=== PATIENT | female | born 1970 | race Caucasian/White ===

== ENCOUNTER 2016-12-03 10:13 | Inpatient (IN) | payer MEDICAID ==
[~2016-12-03] VITALS: Ht 154.9 cm; Wt 80.6 kg
[~2016-12-03 10:13] MED LIST: AMLO-512 PO; AZIT250T6 PO; DSS100 PO; FERR-89 PO; FURO40 PO; GLIP5 PO; HYD25 PO; HYDR25TA PO; LOSA25TA21 PO; MECL25TA3 PO; PHOSLOC PO; SODI650T PO; ZOLP5 PO
[2016-12-03] MEDS ORDERED: AmLODIPine BESYLATE 5 MG TABLET PO ONE (10:45)
[2016-12-03] MEDS ORDERED: CloNIDine HCL 0.2 MG TABLET PO ONE (10:45)
[2016-12-03] MEDS ORDERED: HYDROmorphone 2 MG/ML SYRINGE IVP ONE ×3 (10:45→14:45)
[2016-12-03] MEDS ORDERED: ONDANSETRON HCL 4 MG/2 ML VIAL IVP ONE ×2 (10:45→13:15)
[2016-12-03] MEDS ORDERED: INSU100V3 SQ (10:46)
[2016-12-03] MEDS ORDERED: SEVEC800 PO (10:46)
[2016-12-03] MEDS ORDERED: CLON.3 PO (10:46)
[2016-12-03] MEDS ORDERED: ASPI-1093 PO (10:46)
[2016-12-03] MEDS ORDERED: PHOSLOC PO (10:46)
[2016-12-03] MEDS ORDERED: PERCT10 PO (10:46)
[2016-12-03] MEDS ORDERED: HUMLIS7525 SQ (10:46)
[2016-12-03] MEDS ORDERED: METO-325 PO (10:46)
[2016-12-03] MEDS ORDERED: INSREG SQ (10:46)
[2016-12-03 11:12] LABS: BASOPHILS % (AUTO) 0.6 % (0.0-2.0); EOSINOPHILS % (AUTO) 0.5 % (1.0-6.0); HEMATOCRIT 38.9 % (36-46); HEMOGLOBIN 12.8 g/dL (12.0-16.0); LYMPHOCYTES # (AUTO) 1.3 K/uL (1.0-4.8); LYMPHOCYTES % (AUTO) 14.1 % (22.0-44.0); MEAN CORPUSCULAR HEMOGLOBIN 29.1 pg (26.0-34.0); MEAN CORPUSCULAR HGB CONC 32.9 G/dL (31.0-37.0); MEAN CORPUSCULAR VOLUME 88 fL (80-100); MONOCYTES # (AUTO) 0.3 K/uL (0.1-1.0); MONOCYTES % (AUTO) 3.1 % (2.0-9.0); NEUTROPHILS # (AUTO) 7.4 K/uL (1.8-7.7); NEUTROPHILS % (AUTO) 81.7 % (40.0-70.0); PLATELET COUNT (AUTO) 170 K/uL (150-450); RED CELL DISTRIBUTION WIDTH 15.8 % (11.5-14.5)
[2016-12-03 11:21] LABS: CALCIUM, TOTAL 8.8 mg/dL (8.8-10.5); CREATININE 5.75 mg/dL (0.60-1.30); POTASSIUM 4.4 mmol/L (3.5-5.1)
[2016-12-03 11:25] LABS: ALBUMIN 3.8 g/dL (3.4-5.0); BILIRUBIN,TOTAL 0.4 mg/dL (0.1-1.0); TOTAL PROTEIN, SERUM 9.3 g/dL (6.4-8.2)
[2016-12-03] MEDS ORDERED: INSULIN REGULAR, HUMAN 100 UNITS/ML IVP ONE (12:15)
[2016-12-03] MEDS ORDERED: NITROGLYCERIN 2% (1 GM=INCH) PACKET TP ONE (12:30)
[2016-12-03] MEDS ORDERED: METOPROLOL TARTRATE 5 MG/5 ML VIAL IVP ONE ×2 (12:30→14:30)
[2016-12-03] MEDS ORDERED: PROMETHAZINE HCL 25 MG/ML VIAL IM ONE (14:15)
[2016-12-03] MEDS ORDERED: KETOROLAC TROMETHAMINE 30 MG/ML VIAL IVP ONE (14:45)
[2016-12-03] MEDS ORDERED: NITROPRUSSIDE SODIUM 50 MG in DEXTROSE 5%-WATER 248 ML IV PRN ×2 (14:45→16:48)
[2016-12-03] MEDS ORDERED: ACETAMINOPHEN 325 MG TABLET PO PRN ×2 (14:45→16:45)
[2016-12-03] MEDS ORDERED: ONDANSETRON HCL 4 MG/2 ML VIAL IVP PRN (14:45)
[2016-12-03] MEDS ORDERED: 0.9% SODIUM CHLORIDE 10 ML SYRINGE IVP PRN (14:45)
[2016-12-03] MEDS ORDERED: ZOLPIDEM TARTRATE 5 MG TABLET PO PRN (16:45)
[2016-12-03] MEDS ORDERED: HYDROCODONE/ACETAMINOPHEN 5-325 MG TABLET PO PRN (16:45)
[2016-12-03] MEDS ORDERED: MAGNESIUM HYDROXIDE SUSPENSION 30 ML UDCUP PO PRN (16:45)
[2016-12-03] MEDS ORDERED: BISACODYL 10 MG RECTAL RECTAL SUPPOSITORY PR PRN (16:45)
[2016-12-03] MEDS ORDERED: DEXTROSE 50%-WATER 25 GM/50 ML SYRINGE IVP PRN (17:00)
[2016-12-03 17:18] VITALS: BP 205/110
[2016-12-03] MEDS: SEVELAMER CARBONATE 800 MG POWDER PACKET PO SCH (17:37)
[2016-12-03] MEDS: GlipiZIDE 5 MG TABLET PO SCH (17:37)
[2016-12-03] MEDS: LABETALOL HCL 200 MG in DEXTROSE 5%-WATER 160 ML IV PRN ×2 (17:37→21:48)
[2016-12-03] MEDS: CloNIDine HCL 0.1 MG TABLET PO SCH (17:57)
[2016-12-03] MEDS: INSULIN ASPART 100 UNITS/ML SQ PRN ×2 (17:58→21:51)
[2016-12-03] MEDS ORDERED: HydrALAZINE HCL 20 MG/ML VIAL IVP PRN (19:00)
[2016-12-03] MEDS ORDERED: PNEUMOCOCCAL VACCINE POLYVALENT 0.5 ML VIAL [PPSV23] IM ONE (19:15)
[2016-12-03 20:00] VITALS: BP 135/76
[2016-12-03] MEDS ORDERED: SODIUM BICARBONATE 650 MG TABLET PO SCH (21:00)
[2016-12-03] MEDS: ISOSORB DINIT/HYDRALAZINE HCL 20-37.5 MG TABLET PO SCH (21:47)
[2016-12-03] MEDS: DOCUSATE SODIUM 100 MG CAPSULE PO SCH (21:47)
[2016-12-04] VITALS (9 sets, daily range): BP systolic 134–172; BP diastolic 60–92
[2016-12-04] MEDS: CloNIDine HCL 0.1 MG TABLET PO SCH ×3 (00:27→16:29)
[2016-12-04] MEDS: HEPARIN SODIUM,PORCINE 5,000 UNITS/ML VIAL SQ SCH ×3 (00:27→16:29)
[2016-12-04] MEDS: INSULIN ASPART 100 UNITS/ML SQ PRN ×3 (00:28→16:31)
[2016-12-04] MEDS: LABETALOL HCL 200 MG in DEXTROSE 5%-WATER 160 ML IV PRN ×2 (00:39→05:06)
[2016-12-04] MEDS: ONDANSETRON HCL 4 MG/2 ML VIAL IVP PRN (00:40)
[2016-12-04 05:16] LABS: BASOPHILS # (AUTO) 0.04 K/uL (0.00-0.20); BASOPHILS % (AUTO) 0.5 % (0.0-2.0); EOSINOPHILS # (AUTO) 0.06 K/uL (0.00-0.70); EOSINOPHILS % (AUTO) 0.78 % (1.0-6.0); HEMATOCRIT 33.6 % (36-46); HEMOGLOBIN 11.2 g/dL (12.0-16.0); LYMPHOCYTES # (AUTO) 2.2 K/uL (1.0-4.8); LYMPHOCYTES % (AUTO) 28.7 % (22.0-44.0); MEAN CORPUSCULAR HEMOGLOBIN 29.7 pg (26.0-34.0); MEAN CORPUSCULAR HGB CONC 33.3 G/dL (31.0-37.0); MEAN CORPUSCULAR VOLUME 89 fL (80-100); MONOCYTES # (AUTO) 0.7 K/uL (0.1-1.0); MONOCYTES % (AUTO) 8.4 % (2.0-9.0); NEUTROPHILS # (AUTO) 4.8 K/uL (1.8-7.7); NEUTROPHILS % (AUTO) 61.6 % (40.0-70.0); PLATELET COUNT (AUTO) 150 K/uL (150-450); RED BLOOD CELL COUNT(AUTO) 3.77 MIL/uL (4.00-5.20); RED CELL DISTRIBUTION WIDTH 16.2 % (11.5-14.5); WHITE BLOOD COUNT (AUTO) 7.8 K/uL (4.5-11.0)
[2016-12-04 05:33] LABS: CREATININE 7.53 mg/dL (0.60-1.30); MAGNESIUM 2.2 mg/dL (1.80-2.40)
[2016-12-04] MEDS: MORPHINE SULFATE 2 MG/ML SYRINGE IVP PRN ×2 (06:22→22:48)
[2016-12-04] MEDS: GlipiZIDE 5 MG TABLET PO SCH ×2 (06:35→16:29)
[2016-12-04] MEDS: INSULIN LISPRO PROTAM-LISPRO HUM 75/25 UNITS/ML SQ SCH (08:00)
[2016-12-04 08:07] LABS: GLUCOSE,POINT OF CARE 172 MG/DL (70-110)
[2016-12-04 08:07] LABS: GLUCOSE,POINT OF CARE 228 MG/DL (70-110)
[2016-12-04 08:07] LABS: GLUCOSE COMMENT 1 Received Meds; GLUCOSE,POINT OF CARE 325 MG/DL (70-110)
[2016-12-04 08:11] LABS: GLUCOSE,POINT OF CARE 120 MG/DL (70-110)
[2016-12-04] MEDS ORDERED: LOSARTAN POTASSIUM 25 MG TABLET PO SCH (09:00)
[2016-12-04] MEDS: ISOSORB DINIT/HYDRALAZINE HCL 20-37.5 MG TABLET PO SCH (09:15)
[2016-12-04] MEDS: SEVELAMER CARBONATE 800 MG POWDER PACKET PO SCH ×3 (09:15→16:28)
[2016-12-04] MEDS: DOCUSATE SODIUM 100 MG CAPSULE PO SCH ×2 (09:15→22:48)
[2016-12-04] MEDS: PANTOPRAZOLE SODIUM 40 MG DR TABLET PO SCH (09:16)
[2016-12-04] MEDS: METOPROLOL SUCCINATE 50 MG ER TABLET PO SCH (09:16)
[2016-12-04] MEDS: AmLODIPine BESYLATE 10 MG TABLET PO SCH (09:16)
[2016-12-04] MEDS: VITAMIN B COMP/VIT C/FOLIC ACID CAPSULE PO SCH (17:15)
[2016-12-04 20:33] LABS: GLUCOSE COMMENT 1 Received Meds; GLUCOSE,POINT OF CARE 234 MG/DL (70-110)
[2016-12-05 00:01] VITALS: BP 159/70
[2016-12-05] MEDS: ISOSORB DINIT/HYDRALAZINE HCL 20-37.5 MG TABLET PO SCH ×3 (00:27→23:18)
[2016-12-05] MEDS: CloNIDine HCL 0.1 MG TABLET PO SCH ×4 (00:27→23:41)
[2016-12-05] MEDS: HEPARIN SODIUM,PORCINE 5,000 UNITS/ML VIAL SQ SCH ×4 (00:28→23:37)
[2016-12-05] MEDS: INSULIN ASPART 100 UNITS/ML SQ PRN ×4 (00:40→23:37)
[2016-12-05] MEDS: MORPHINE SULFATE 2 MG/ML SYRINGE IVP PRN ×2 (02:59→23:40)
[2016-12-05 03:26] LABS: GLUCOSE COMMENT 1 Received Meds; GLUCOSE,POINT OF CARE 270 MG/DL (70-110)
[2016-12-05 04:26] VITALS: BP 159/78
[2016-12-05] MEDS: GlipiZIDE 5 MG TABLET PO SCH ×2 (05:57→18:02)
[2016-12-05 06:37] LABS: GLUCOSE COMMENT 1 Received Meds; GLUCOSE,POINT OF CARE 279 MG/DL (70-110)
[2016-12-05 06:37] LABS: GLUCOSE COMMENT 1 Received Meds; GLUCOSE,POINT OF CARE 187 MG/DL (70-110)
[2016-12-05 07:20] VITALS: BP 167/79
[2016-12-05] MEDS: METOPROLOL SUCCINATE 50 MG ER TABLET PO SCH (08:11)
[2016-12-05] MEDS: SEVELAMER CARBONATE 800 MG POWDER PACKET PO SCH ×3 (08:11→18:03)
[2016-12-05] MEDS: DOCUSATE SODIUM 100 MG CAPSULE PO SCH ×2 (08:11→23:18)
[2016-12-05] MEDS: AmLODIPine BESYLATE 10 MG TABLET PO SCH (08:11)
[2016-12-05] MEDS: VITAMIN B COMP/VIT C/FOLIC ACID CAPSULE PO SCH (08:11)
[2016-12-05] MEDS: PANTOPRAZOLE SODIUM 40 MG DR TABLET PO SCH (08:11)
[2016-12-05] MEDS: INSULIN LISPRO PROTAM-LISPRO HUM 75/25 UNITS/ML SQ SCH (08:13)
[2016-12-05] MEDS ORDERED: LOSARTAN POTASSIUM 50 MG TABLET PO SCH (09:00)
[2016-12-05 11:14] VITALS: BP 140/68
[2016-12-05 14:23] LABS: GLUCOSE,POINT OF CARE 230 MG/DL (70-110)
[2016-12-05 15:52] VITALS: BP 141/73
[2016-12-05] MEDS ORDERED: ISOS1TAB2 PO ×2 (19:36→19:37)
[2016-12-05] MEDS ORDERED: FOLI1CAP2 PO (19:43)
[2016-12-05 20:16] VITALS: BP 150/84
[2016-12-05] MEDS: ONDANSETRON HCL 4 MG/2 ML VIAL IVP PRN (23:22)
[2016-12-06 00:07] VITALS: BP 164/89
[2016-12-06 04:42] LABS: GLUCOSE COMMENT 1 Received Meds; GLUCOSE,POINT OF CARE 193 MG/DL (70-110)
[2016-12-06 04:42] LABS: GLUCOSE COMMENT 1 Received Meds; GLUCOSE,POINT OF CARE 201 MG/DL (70-110)
[2016-12-06 04:56] VITALS: BP 144/75
[2016-12-06] MEDS: GlipiZIDE 5 MG TABLET PO SCH (06:17)
[2016-12-06] MEDS: INSULIN ASPART 100 UNITS/ML SQ PRN ×2 (06:22→12:29)
[2016-12-06 06:37] LABS: GLUCOSE COMMENT 1 Received Meds; GLUCOSE,POINT OF CARE 168 MG/DL (70-110)
[2016-12-06 07:07] VITALS: BP 143/82
[2016-12-06] MEDS: HEPARIN SODIUM,PORCINE 5,000 UNITS/ML VIAL SQ SCH ×2 (08:41→15:55)
[2016-12-06] MEDS: METOPROLOL SUCCINATE 50 MG ER TABLET PO SCH (08:41)
[2016-12-06] MEDS: ISOSORB DINIT/HYDRALAZINE HCL 20-37.5 MG TABLET PO SCH (08:41)
[2016-12-06] MEDS: VITAMIN B COMP/VIT C/FOLIC ACID CAPSULE PO SCH (08:41)
[2016-12-06] MEDS: AmLODIPine BESYLATE 10 MG TABLET PO SCH (08:41)
[2016-12-06] MEDS: DOCUSATE SODIUM 100 MG CAPSULE PO SCH (08:41)
[2016-12-06] MEDS: PANTOPRAZOLE SODIUM 40 MG DR TABLET PO SCH (08:41)
[2016-12-06] MEDS: CloNIDine HCL 0.1 MG TABLET PO SCH ×2 (08:42→15:55)
[2016-12-06] MEDS: SEVELAMER CARBONATE 800 MG POWDER PACKET PO SCH ×2 (08:42→12:28)
[2016-12-06] MEDS ORDERED: LOSARTAN POTASSIUM 50 MG TABLET PO SCH (09:00)
[2016-12-06] MEDS: INSULIN LISPRO PROTAM-LISPRO HUM 75/25 UNITS/ML SQ SCH (09:50)
[2016-12-06 11:01] VITALS: BP 112/61
[2016-12-06] MEDS: MORPHINE SULFATE 2 MG/ML SYRINGE IVP PRN (11:30)
[2016-12-06 12:13] LABS: GLUCOSE,POINT OF CARE 214 MG/DL (70-110)
[2016-12-06] MEDS ORDERED: CLON.1 PO (14:50)
[2016-12-06] MEDS ORDERED: LOSA50TA37 PO (14:52)
== END 2016-12-06 16:20 | disposition home or self-care (01) | DRG 199 ==
LOC: EMS 10:15 → ICU 15:57 → 5N 12-04 18:40
PROVIDERS: ADMIT Internal Medicine; ATTEND Internal Medicine
PROC: 5A1D00Z (ICD-10-PCS; principal; 2016-12-05)
DX: I16.0 Hypertensive urgency (principal); N18.6 End stage renal disease; E11.21 Type 2 diabetes mellitus with diabetic nephropathy; I12.0 Hypertensive chronic kidney disease with stage 5 chronic kidney disease or end stage renal disease; E11.22 Type 2 diabetes mellitus with diabetic chronic kidney disease; E87.1 Hypo-osmolality and hyponatremia; H26.9 Unspecified cataract; J44.9 Chronic obstructive pulmonary disease, unspecified; K80.20 Calculus of gallbladder without cholecystitis without obstruction; E55.9 Vitamin D deficiency, unspecified; E78.5 Hyperlipidemia, unspecified; D63.8 Anemia in other chronic diseases classified elsewhere; F41.9 Anxiety disorder, unspecified; Z99.2 Dependence on renal dialysis; Z79.899 Other long term (current) drug therapy; Z79.84 Long term (current) use of oral hypoglycemic drugs; Z89.421 Acquired absence of other right toe(s); Z28.21 Immunization not carried out because of patient refusal
CPT/HCPCS: 70450; 76700; 82962; 83735; 84100; 87070; 87081; 87205; 90935; 93005; 93306; 96365; 96372; 96375; 96376; 99285; J0360; J1170; J1644; J1815; J1885; J2270; J2405; J2550; J3490; J7060

== ENCOUNTER 2017-01-23 05:06 | Emergency (ER) | payer MEDICAID ==
[~2017-01-23] VITALS: Ht 154.9 cm; Wt 80.0 kg
[~2017-01-23 05:06] MED LIST changes: +ASPI-1093 PO; -AZIT250T6 PO; +CLON.1 PO; -DSS100 PO; -FERR-89 PO; +FOLI1CAP2 PO; +HUMLIS7525 SQ; -HYD25 PO; -HYDR25TA PO; +INSREG SQ; +INSU100V3 SQ; +ISOS1TAB2 PO; -LOSA25TA21 PO; +LOSA50TA37 PO; -MECL25TA3 PO; +METO-325 PO; +PERCT10 PO; +SEVEC800 PO; -ZOLP5 PO
[2017-01-23] MEDS ORDERED: PHOSLOC PO (05:19)
[2017-01-23] MEDS ORDERED: ALPR0.255 PO (05:19)
[2017-01-23] MEDS ORDERED: ATOR20TA86 PO (05:19)
[2017-01-23] MEDS ORDERED: SERT50TA12 PO (05:19)
[2017-01-23] MEDS ORDERED: AMLO-511 PO (05:19)
[2017-01-23] MEDS ORDERED: SEVE800T PO (05:19)
[2017-01-23] MEDS ORDERED: LISI-662 PO (05:19)
[2017-01-23 05:22] LABS: GLUCOSE,POINT OF CARE 213 MG/DL (70-110)
[2017-01-23] MEDS ORDERED: SODIUM CHLORIDE 0.9% 1,000 ML IV ONE (07:15)
[2017-01-23] MEDS ORDERED: KETOROLAC TROMETHAMINE 30 MG/ML VIAL IVP ONE (07:15)
[2017-01-23] MEDS ORDERED: ONDANSETRON HCL 4 MG/2 ML VIAL IVP ONE ×2 (07:15→10:00)
[2017-01-23 07:49] LABS: HEMATOCRIT 35.5 % (36-46); HEMOGLOBIN 11.6 g/dL (12.0-16.0); MEAN CORPUSCULAR HGB CONC 32.7 G/dL (31.0-37.0); MEAN CORPUSCULAR VOLUME 92 fL (80-100); RED BLOOD CELL COUNT(AUTO) 3.87 MIL/uL (4.00-5.20); WHITE BLOOD COUNT (AUTO) 8.6 K/uL (4.5-11.0)
[2017-01-23 07:50] LABS: BASOPHILS % (AUTO) 0.4 % (0.0-2.0); EOSINOPHILS # (AUTO) 0.04 K/uL (0.00-0.70); EOSINOPHILS % (AUTO) 0.42 % (1.0-6.0); LYMPHOCYTES % (AUTO) 12.1 % (22.0-44.0); MONOCYTES # (AUTO) 0.5 K/uL (0.1-1.0); MONOCYTES % (AUTO) 5.7 % (2.0-9.0); NEUTROPHILS % (AUTO) 81.4 % (40.0-70.0); PLATELET COUNT (AUTO) 218 K/uL (150-450); RED CELL DISTRIBUTION WIDTH 17.8 % (11.5-14.5)
[2017-01-23 07:51] LABS: APPEARANCE,URINE CLOUDY (CLEAR); GLUCOSE, URINE (UA) 500 mg/dL (NEGATIVE); KETONES,URINE TRACE mg/dL (NEGATIVE); LEUKOCYTE ESTERASE ,URINE TRACE (NEGATIVE); OCCULT BLOOD,URINE LARGE (NEGATIVE); PH,URINE 7.5 (5.0-8.0); PROTEIN,URINE SEE CONFIRM (NEGATIVE)
[2017-01-23 07:51] LABS: BASOPHILS # (AUTO) 0.03 K/uL (0.00-0.20)
[2017-01-23 07:54] LABS: RENAL EPITHELIAL CELLS,URINE Few /LPF (None Seen); SQUAMOUS EPITHELIAL CELL,UR Many /LPF (None Seen); SULFOSALICYLIC ACID,URINE 4+ (Negative)
[2017-01-23 07:58] LABS: CALCIUM, TOTAL 7.7 mg/dL (8.8-10.5); CREATININE 8.03 mg/dL (0.60-1.30); POTASSIUM 5.1 mmol/L (3.5-5.1)
[2017-01-23 08:05] LABS: ALBUMIN 3.4 g/dL (3.4-5.0); BILIRUBIN,TOTAL 0.3 mg/dL (0.1-1.0); TOTAL PROTEIN, SERUM 7.8 g/dL (6.4-8.2)
[2017-01-23] MEDS ORDERED: CefTRIAXone 1 GM/DEXTROSE 50 ML IV ONE (08:45)
[2017-01-23] MEDS ORDERED: MORPHINE SULFATE 4 MG/ML SYRINGE IVP ONE (10:00)
[2017-01-23 10:15] VITALS: BP 169/90
== END 2017-01-23 10:27 | disposition home or self-care (01) ==
LOC: EMS 05:07
DX: N39.0 Urinary tract infection, site not specified (principal); I10 Essential (primary) hypertension; E11.29 Type 2 diabetes mellitus with other diabetic kidney complication; N28.9 Disorder of kidney and ureter, unspecified; Z79.4 Long term (current) use of insulin
CPT/HCPCS: 36415; 80053; 81001; 82962; 85025; 87086; 96361; 96365; 96375; 96376; 99284; J0696; J1885; J2270; J2405

== ENCOUNTER 2019-08-13 17:32 | Inpatient (IN) | payer MEDICAID ==
[~2019-08-13] VITALS: Ht 165.1 cm; Wt 79.0 kg
[~2019-08-13 17:32] MED LIST changes: +ALPR0.255 PO; -AMLO-512 PO; +AMLO5TAB9 PO; -ASPI-1093 PO; +ASPI-1182 PO; +ATOR20TA86 PO; -CLON.1 PO; +CLON0.1T2 PO; -FOLI1CAP2 PO; -FURO40 PO; -GLIP5 PO; -INSREG SQ; -ISOS1TAB2 PO; +LISI-662 PO; -LOSA50TA37 PO; -METO-325 PO; -PERCT10 PO; +SERT50TA12 PO; +SEVE800 PO; -SEVEC800 PO; -SODI650T PO
[2019-08-13] MEDS ORDERED: NiCARDipine HCL 25 MG in DEXTROSE 5%-WATER 240 ML IV PRN (17:45)
[2019-08-13] MEDS ORDERED: HYDR-2924 PO (17:58)
[2019-08-13] MEDS ORDERED: METO50 PO (17:58)
[2019-08-13] MEDS ORDERED: SODIUM CHLORIDE 0.9% 500 ML IV ONE ×3 (18:10→18:38)
[2019-08-13 18:38] LABS: BASOPHILS % (AUTO) 1.1 % (0.0-2.0); EOSINOPHILS % (AUTO) 1.3 % (1.0-6.0); HEMATOCRIT 31.6 % (36-46); HEMOGLOBIN 10.3 g/dL (12.0-16.0); LYMPHOCYTES # (AUTO) 0.6 K/uL (1.0-4.8); LYMPHOCYTES % (AUTO) 12.3 % (22.0-44.0); MEAN CORPUSCULAR HEMOGLOBIN 30.1 pg (26.0-34.0); MEAN CORPUSCULAR HGB CONC 32.6 G/dL (31.0-37.0); MEAN CORPUSCULAR VOLUME 93 fL (80-100); MONOCYTES # (AUTO) 0.6 K/uL (0.1-1.0); MONOCYTES % (AUTO) 11.5 % (2.0-9.0); NEUTROPHILS # (AUTO) 3.7 K/uL (1.8-7.7); NEUTROPHILS % (AUTO) 73.8 % (40.0-70.0); PLATELET COUNT (AUTO) 113 K/uL (150-450); RED BLOOD CELL COUNT(AUTO) 3.41 MIL/uL (4.00-5.20)
[2019-08-13 18:47] LABS: ANION GAP 7 mmol/L (8-16); CARBON DIOXIDE 31 mmol/L (22-29); CHLORIDE 92 mmol/L (98-107); CREATININE 5.57 mg/dL (0.60-1.30); GLOMERULAR FILTR. RATE CALC 8 mL/min (>60); GLUCOSE,RANDOM 270 mg/dL (70-110); POTASSIUM 4.4 mmol/L (3.5-5.1); SODIUM SERUM 130 mmol/L (136-145); UREA NITROGEN, BLOOD 38 mg/dL (7-18)
[2019-08-13 18:58] LABS: ALANINE AMINOTRANSFERASE 15 U/L (12-78); ALBUMIN 3.5 g/dL (3.4-5.0); ALKALINE PHOSPHATASE 180 U/L (46-116); ASPARTATE AMINOTRANSFERASE 15 U/L (15-37); BILIRUBIN,TOTAL 0.6 mg/dL (0.1-1.0); HCG,QUANTITATIVE < 1 mIU/mL (0-6); LIPASE 161 U/L (73-393); TOTAL PROTEIN, SERUM 8.5 g/dL (6.4-8.2)
[2019-08-13] MEDS ORDERED: 0.9% SODIUM CHLORIDE 10 ML SYRINGE IVP PRN (22:45)
[2019-08-13] MEDS ORDERED: ONDANSETRON HCL 4 MG/2 ML VIAL IVP PRN (22:45)
[2019-08-13] MEDS ORDERED: ACETAMINOPHEN 325 MG TABLET PO PRN ×2 (22:45→23:00)
[2019-08-13] MEDS ORDERED: BISACODYL 10 MG RECTAL RECTAL SUPPOSITORY PR PRN (23:00)
[2019-08-13] MEDS ORDERED: ZOLPIDEM TARTRATE 5 MG TABLET PO PRN (23:00)
[2019-08-13] MEDS ORDERED: MAGNESIUM HYDROXIDE SUSPENSION 30 ML UDCUP PO PRN (23:00)
[2019-08-13] MEDS: ONDANSETRON HCL 4 MG/2 ML VIAL IVP PRN (23:40)
[2019-08-13] MEDS: LABETALOL HCL 5 MG/ML 20 ML VIAL IVP PRN (23:41)
[2019-08-13] MEDS: HEPARIN SODIUM,PORCINE 5,000 UNITS/ML VIAL SQ SCH (23:42)
[2019-08-13] MEDS: MORPHINE SULFATE 2 MG/ML SYRINGE IVP PRN (23:50)
[2019-08-14] VITALS (7 sets, daily range): BP systolic 135–213; BP diastolic 64–117
[2019-08-14] MEDS: HYDROCODONE/ACETAMINOPHEN 5-325 MG TABLET PO PRN ×2 (02:45→07:39)
[2019-08-14] MEDS ORDERED: LISINOPRIL 20 MG TABLET PO ONE (03:15)
[2019-08-14] MEDS ORDERED: HydrALAZINE HCL 25 MG TABLET PO ONE (03:15)
[2019-08-14] MEDS ORDERED: METOPROLOL TARTRATE 50 MG TABLET PO ONE (03:15)
[2019-08-14] MEDS: MORPHINE SULFATE 2 MG/ML SYRINGE IVP PRN ×3 (04:33→14:00)
[2019-08-14] MEDS: ONDANSETRON HCL 4 MG/2 ML VIAL IVP PRN ×3 (04:33→13:59)
[2019-08-14] MEDS: LABETALOL HCL 5 MG/ML 20 ML VIAL IVP PRN (07:05)
[2019-08-14] MEDS ORDERED: SEVELAMER CARBONATE 800 MG TABLET PO SCH (08:00)
[2019-08-14] MEDS ORDERED: PANTOPRAZOLE SODIUM 40 MG DR TABLET PO SCH (09:00)
[2019-08-14] MEDS: DOCUSATE SODIUM 100 MG CAPSULE PO SCH ×2 (09:00→21:00)
[2019-08-14] MEDS ORDERED: SODIUM CHLORIDE 0.9% 250 ML IV ONE (09:52)
[2019-08-14] MEDS: HydrALAZINE HCL 50 MG TABLET PO SCH ×3 (09:59→21:02)
[2019-08-14] MEDS: HEPARIN SODIUM,PORCINE 5,000 UNITS/ML VIAL SQ SCH ×2 (09:59→17:52)
[2019-08-14] MEDS: LISINOPRIL 20 MG TABLET PO SCH ×2 (10:00→21:02)
[2019-08-14] MEDS: METOCLOPRAMIDE HCL 5 MG/ML 2 ML VIAL IVP PRN ×2 (10:00→22:40)
[2019-08-14] MEDS: MetroNIDAZOLE 500 MG/NACL 100 ML IV SCH ×2 (10:00→17:53)
[2019-08-14] MEDS: METOPROLOL TARTRATE 50 MG TABLET PO SCH ×2 (10:00→21:02)
[2019-08-14] MEDS: INSULIN LISPRO PROTAM-LISPRO HUM 75/25 UNITS/ML SQ SCH (10:06)
[2019-08-14] MEDS ORDERED: BARIUM SULFATE 0.1% SUSPENSION 450 ML BOTTLE ONE (10:30)
[2019-08-14 11:52] LABS: GLUCOMETER DEV NAME(LOC) 5S.2A; GLUCOSE,POINT OF CARE 254 MG/DL (70-110)
[2019-08-14 20:19] LABS: GLUCOMETER DEV NAME(LOC) 5N.1; GLUCOSE,POINT OF CARE 183 MG/DL (70-110)
[2019-08-15 00:29] VITALS: BP 157/91
[2019-08-15] MEDS: MetroNIDAZOLE 500 MG/NACL 100 ML IV SCH ×3 (01:34→17:37)
[2019-08-15] MEDS: ONDANSETRON HCL 4 MG/2 ML VIAL IVP PRN ×2 (03:10→12:50)
[2019-08-15] MEDS: HYDROCODONE/ACETAMINOPHEN 5-325 MG TABLET PO PRN (03:11)
[2019-08-15 03:18] VITALS: BP 153/105
[2019-08-15] MEDS: PANTOPRAZOLE SODIUM 40 MG/VIAL IVP SCH ×2 (06:16→10:02)
[2019-08-15 06:41] LABS: GLUCOMETER DEV NAME(LOC) 5S.2A; GLUCOSE,POINT OF CARE 175 MG/DL (70-110)
[2019-08-15 07:12] LABS: BASOPHILS % (AUTO) 2.1 % (0.0-2.0); EOSINOPHILS % (AUTO) 1.3 % (1.0-6.0); HEMATOCRIT 28.6 % (36-46); HEMOGLOBIN 9.3 g/dL (12.0-16.0); LYMPHOCYTES # (AUTO) 0.7 K/uL (1.0-4.8); LYMPHOCYTES % (AUTO) 17.5 % (22.0-44.0); MEAN CORPUSCULAR HEMOGLOBIN 30.4 pg (26.0-34.0); MEAN CORPUSCULAR HGB CONC 32.7 G/dL (31.0-37.0); MEAN CORPUSCULAR VOLUME 93 fL (80-100); MONOCYTES # (AUTO) 0.4 K/uL (0.1-1.0); MONOCYTES % (AUTO) 9.9 % (2.0-9.0); NEUTROPHILS # (AUTO) 2.6 K/uL (1.8-7.7); NEUTROPHILS % (AUTO) 69.2 % (40.0-70.0); PLATELET COUNT (AUTO) 105 K/uL (150-450); RED BLOOD CELL COUNT(AUTO) 3.07 MIL/uL (4.00-5.20); RED CELL DISTRIBUTION WIDTH 17.4 % (11.5-14.5)
[2019-08-15 07:22] LABS: CALCIUM, TOTAL 8.6 mg/dL (8.8-10.5); CREATININE 7.4 mg/dL (0.60-1.30); POTASSIUM 4.4 mmol/L (3.5-5.1)
[2019-08-15 07:43] VITALS: BP 153/97
[2019-08-15] MEDS: INSULIN LISPRO PROTAM-LISPRO HUM 75/25 UNITS/ML SQ SCH (08:00)
[2019-08-15] MEDS: HydrALAZINE HCL 50 MG TABLET PO SCH ×3 (09:00→21:06)
[2019-08-15] MEDS: LISINOPRIL 20 MG TABLET PO SCH ×2 (09:00→21:06)
[2019-08-15] MEDS: METOPROLOL TARTRATE 50 MG TABLET PO SCH ×2 (09:00→21:06)
[2019-08-15] MEDS: HEPARIN SODIUM,PORCINE 5,000 UNITS/ML VIAL SQ SCH ×3 (09:58→16:00)
[2019-08-15] MEDS: DOCUSATE SODIUM 100 MG CAPSULE PO SCH ×2 (09:59→21:06)
[2019-08-15] MEDS: MORPHINE SULFATE 2 MG/ML SYRINGE IVP PRN ×2 (12:50→17:25)
[2019-08-15] MEDS: PANTOPRAZOLE SODIUM 80 MG in SODIUM CHLORIDE 0.9% 100 ML IV SCH (17:26)
[2019-08-15 19:54] VITALS: BP 204/92
[2019-08-15 22:21] VITALS: BP 165/113
[2019-08-15 23:48] VITALS: BP 154/87
[2019-08-16] MEDS: MetroNIDAZOLE 500 MG/NACL 100 ML IV SCH ×3 (00:16→17:38)
[2019-08-16] MEDS: PANTOPRAZOLE SODIUM 80 MG in SODIUM CHLORIDE 0.9% 100 ML IV SCH ×3 (00:16→21:25)
[2019-08-16] MEDS: HEPARIN SODIUM,PORCINE 5,000 UNITS/ML VIAL SQ SCH ×3 (00:16→14:47)
[2019-08-16] MEDS: ONDANSETRON HCL 4 MG/2 ML VIAL IVP PRN ×2 (03:27→15:55)
[2019-08-16] MEDS: MORPHINE SULFATE 2 MG/ML SYRINGE IVP PRN ×3 (03:27→18:05)
[2019-08-16 03:30] VITALS: BP 163/103
[2019-08-16 06:09] LABS: BASOPHILS % (AUTO) 1.4 % (0.0-2.0); EOSINOPHILS % (AUTO) 1.7 % (1.0-6.0); HEMATOCRIT 28.8 % (36-46); HEMOGLOBIN 9.5 g/dL (12.0-16.0); LYMPHOCYTES # (AUTO) 0.5 K/uL (1.0-4.8); LYMPHOCYTES % (AUTO) 17.5 % (22.0-44.0); MEAN CORPUSCULAR HEMOGLOBIN 30.8 pg (26.0-34.0); MEAN CORPUSCULAR VOLUME 94 fL (80-100); MONOCYTES # (AUTO) 0.4 K/uL (0.1-1.0); MONOCYTES % (AUTO) 12.9 % (2.0-9.0); NEUTROPHILS # (AUTO) 2.1 K/uL (1.8-7.7); NEUTROPHILS % (AUTO) 66.5 % (40.0-70.0); PLATELET COUNT (AUTO) 91 K/uL (150-450); RED BLOOD CELL COUNT(AUTO) 3.08 MIL/uL (4.00-5.20); RED CELL DISTRIBUTION WIDTH 17.3 % (11.5-14.5)
[2019-08-16 06:33] LABS: CALCIUM, TOTAL 8.5 mg/dL (8.8-10.5); CREATININE 4.79 mg/dL (0.60-1.30); POTASSIUM 4.3 mmol/L (3.5-5.1)
[2019-08-16 07:37] VITALS: BP 204/119
[2019-08-16] MEDS: INSULIN LISPRO PROTAM-LISPRO HUM 75/25 UNITS/ML SQ SCH (08:00)
[2019-08-16] MEDS: METOCLOPRAMIDE HCL 5 MG/ML 2 ML VIAL IVP PRN ×2 (08:16→17:39)
[2019-08-16 08:53] LABS: GLUCOMETER DEV NAME(LOC) 5S.1; GLUCOSE,POINT OF CARE 201 MG/DL (70-110)
[2019-08-16] MEDS: DOCUSATE SODIUM 100 MG CAPSULE PO SCH ×2 (09:00→21:25)
[2019-08-16] MEDS: LISINOPRIL 20 MG TABLET PO SCH ×2 (09:00→21:25)
[2019-08-16] MEDS: METOPROLOL TARTRATE 50 MG TABLET PO SCH ×2 (09:00→21:25)
[2019-08-16] MEDS: HydrALAZINE HCL 50 MG TABLET PO SCH ×3 (09:00→21:25)
[2019-08-16] MEDS: LABETALOL HCL 5 MG/ML 20 ML VIAL IVP PRN (09:32)
[2019-08-16] MEDS ORDERED: INSNPH SQ (12:08)
[2019-08-16] MEDS ORDERED: SODIUM CHLORIDE 0.9% 1,000 ML IV ONE (12:15)
[2019-08-16] MEDS: HydrALAZINE HCL 20 MG/ML VIAL IVP PRN (12:16)
[2019-08-16 12:50] VITALS: BP 174/121
[2019-08-16 15:56] LABS: INR 1.2 (0.9-1.1); PROTHROMBIN TIME 11.8 SEC (9.4-11.6)
[2019-08-16 16:09] VITALS: BP 153/96
[2019-08-16 16:37] LABS: ALBUMIN 3.3 g/dL (3.4-5.0); BILIRUBIN,TOTAL 0.6 mg/dL (0.1-1.0); CALCIUM, TOTAL 8.8 mg/dL (8.8-10.5); CREATININE 5.28 mg/dL (0.60-1.30); POTASSIUM 4.3 mmol/L (3.5-5.1)
[2019-08-16 20:27] VITALS: BP 162/116
[2019-08-16] MEDS: INSULIN GLARGINE,HUM.REC.ANLOG 100 UNITS/ML SQ SCH (21:29)
[2019-08-17] MEDS: MetroNIDAZOLE 500 MG/NACL 100 ML IV SCH ×3 (00:17→20:06)
[2019-08-17] MEDS: HEPARIN SODIUM,PORCINE 5,000 UNITS/ML VIAL SQ SCH ×3 (00:17→15:37)
[2019-08-17 00:28] VITALS: BP 166/78
[2019-08-17] MEDS ORDERED: PROPOFOL 1% 20 ML VIAL IVP ONE (05:32)
[2019-08-17] MEDS ORDERED: LIDOCAINE/PF 2% 5 ML VIAL IM ONE (05:32)
[2019-08-17 05:41] LABS: GLUCOMETER DEV NAME(LOC) 5S.2A; GLUCOSE,POINT OF CARE 142 MG/DL (70-110)
[2019-08-17 06:18] LABS: BASOPHILS % (AUTO) 1.2 % (0.0-2.0); EOSINOPHILS % (AUTO) 1.8 % (1.0-6.0); HEMATOCRIT 30.2 % (36-46); HEMOGLOBIN 9.8 g/dL (12.0-16.0); LYMPHOCYTES # (AUTO) 0.7 K/uL (1.0-4.8); LYMPHOCYTES % (AUTO) 20.1 % (22.0-44.0); MEAN CORPUSCULAR HEMOGLOBIN 30.5 pg (26.0-34.0); MEAN CORPUSCULAR HGB CONC 32.6 G/dL (31.0-37.0); MEAN CORPUSCULAR VOLUME 94 fL (80-100); MONOCYTES # (AUTO) 0.4 K/uL (0.1-1.0); NEUTROPHILS # (AUTO) 2.2 K/uL (1.8-7.7); NEUTROPHILS % (AUTO) 63.9 % (40.0-70.0); PLATELET COUNT (AUTO) 91 K/uL (150-450); RED BLOOD CELL COUNT(AUTO) 3.22 MIL/uL (4.00-5.20); RED CELL DISTRIBUTION WIDTH 17.5 % (11.5-14.5)
[2019-08-17] MEDS: PANTOPRAZOLE SODIUM 80 MG in SODIUM CHLORIDE 0.9% 100 ML IV SCH ×2 (06:19→15:36)
[2019-08-17 06:37] LABS: CALCIUM, TOTAL 8.8 mg/dL (8.8-10.5); CREATININE 6.02 mg/dL (0.60-1.30); POTASSIUM 4.4 mmol/L (3.5-5.1)
[2019-08-17 06:42] VITALS: BP 140/89
[2019-08-17 07:55] VITALS: BP 155/103
[2019-08-17] MEDS: METOPROLOL TARTRATE 50 MG TABLET PO SCH ×2 (08:42→20:07)
[2019-08-17] MEDS: LISINOPRIL 20 MG TABLET PO SCH ×2 (08:43→20:07)
[2019-08-17] MEDS: DOCUSATE SODIUM 100 MG CAPSULE PO SCH ×2 (08:43→20:07)
[2019-08-17] MEDS: HydrALAZINE HCL 50 MG TABLET PO SCH ×3 (08:44→20:07)
[2019-08-17] MEDS: EPOETIN ALFA 10,000 UNITS/ML VIAL SQ SCH (08:44)
[2019-08-17] MEDS: INSULIN GLARGINE,HUM.REC.ANLOG 100 UNITS/ML SQ SCH ×2 (08:52→20:31)
[2019-08-17 11:21] VITALS: BP 194/81
[2019-08-17 19:57] VITALS: BP 183/100
[2019-08-17 21:29] LABS: GLUCOMETER DEV NAME(LOC) 5S.1; GLUCOSE,POINT OF CARE 112 MG/DL (70-110)
[2019-08-17] MEDS: HYDROCODONE/ACETAMINOPHEN 5-325 MG TABLET PO PRN (21:29)
[2019-08-17 23:16] VITALS: BP 144/103
[2019-08-18] MEDS: HEPARIN SODIUM,PORCINE 5,000 UNITS/ML VIAL SQ SCH ×3 (01:26→17:12)
[2019-08-18 04:34] VITALS: BP 194/86
[2019-08-18] MEDS: HydrALAZINE HCL 20 MG/ML VIAL IVP PRN (04:35)
[2019-08-18] MEDS: PANTOPRAZOLE SODIUM 80 MG in SODIUM CHLORIDE 0.9% 100 ML IV SCH ×2 (04:36→12:30)
[2019-08-18] MEDS: MetroNIDAZOLE 500 MG/NACL 100 ML IV SCH ×3 (04:39→17:13)
[2019-08-18] MEDS: LABETALOL HCL 5 MG/ML 20 ML VIAL IVP PRN (09:42)
[2019-08-18] MEDS: HydrALAZINE HCL 50 MG TABLET PO SCH ×3 (12:28→21:06)
[2019-08-18] MEDS: LISINOPRIL 20 MG TABLET PO SCH ×2 (12:29→21:05)
[2019-08-18] MEDS: METOPROLOL TARTRATE 50 MG TABLET PO SCH ×2 (12:29→21:06)
[2019-08-18] MEDS: DOCUSATE SODIUM 100 MG CAPSULE PO SCH ×2 (12:29→21:05)
[2019-08-18] MEDS: INSULIN GLARGINE,HUM.REC.ANLOG 100 UNITS/ML SQ SCH ×2 (12:32→21:00)
[2019-08-18] MEDS: HYDROCODONE/ACETAMINOPHEN 5-325 MG TABLET PO PRN (12:32)
[2019-08-18 15:36] VITALS: BP 152/94
[2019-08-18] MEDS: ONDANSETRON HCL 4 MG/2 ML VIAL IVP PRN (17:13)
[2019-08-18] MEDS: MORPHINE SULFATE 2 MG/ML SYRINGE IVP PRN (17:13)
[2019-08-18 20:16] VITALS: BP 137/57
[2019-08-18 21:46] LABS: GLUCOMETER DEV NAME(LOC) 5S.2A; GLUCOSE,POINT OF CARE 47 MG/DL (70-110)
[2019-08-18 21:46] LABS: GLUCOMETER DEV NAME(LOC) 5S.2A; GLUCOSE,POINT OF CARE 78 MG/DL (70-110)
[2019-08-18 21:46] LABS: GLUCOMETER DEV NAME(LOC) 5S.2A; GLUCOSE,POINT OF CARE 133 MG/DL (70-110)
[2019-08-18 23:43] VITALS: BP 190/82
[2019-08-19] MEDS: HydrALAZINE HCL 20 MG/ML VIAL IVP PRN ×2 (00:02→06:02)
[2019-08-19] MEDS: PANTOPRAZOLE SODIUM 80 MG in SODIUM CHLORIDE 0.9% 100 ML IV SCH ×3 (00:02→22:34)
[2019-08-19] MEDS: MetroNIDAZOLE 500 MG/NACL 100 ML IV SCH ×3 (00:15→16:42)
[2019-08-19 04:14] VITALS: BP 164/97
[2019-08-19] MEDS: METOCLOPRAMIDE HCL 5 MG/ML 2 ML VIAL IVP PRN (06:00)
[2019-08-19 07:11] LABS: GLUCOMETER DEV NAME(LOC) 5S.1; GLUCOSE,POINT OF CARE 117 MG/DL (70-110)
[2019-08-19 07:50] VITALS: BP 149/71
[2019-08-19] MEDS: HEPARIN SODIUM,PORCINE 5,000 UNITS/ML VIAL SQ SCH ×4 (08:00→23:07)
[2019-08-19] MEDS: INSULIN GLARGINE,HUM.REC.ANLOG 100 UNITS/ML SQ SCH ×2 (09:00→21:00)
[2019-08-19] MEDS ORDERED: SODIUM CHLORIDE 0.9% 1,000 ML ONE (09:46)
[2019-08-19 11:15] VITALS: BP 183/100
[2019-08-19] MEDS: LISINOPRIL 20 MG TABLET PO SCH ×2 (12:07→21:23)
[2019-08-19] MEDS: HydrALAZINE HCL 50 MG TABLET PO SCH ×3 (12:07→21:24)
[2019-08-19] MEDS: METOPROLOL TARTRATE 50 MG TABLET PO SCH ×2 (12:07→21:23)
[2019-08-19] MEDS: DOCUSATE SODIUM 100 MG CAPSULE PO SCH ×2 (12:07→21:23)
[2019-08-19] MEDS: EPOETIN ALFA 10,000 UNITS/ML VIAL SQ SCH (13:39)
[2019-08-19 15:43] VITALS: BP 187/77
[2019-08-19 20:13] VITALS: BP 167/68
[2019-08-19 20:16] LABS: GLUCOMETER DEV NAME(LOC) 5S.1; GLUCOSE,POINT OF CARE 111 MG/DL (70-110)
[2019-08-19 20:16] LABS: GLUCOMETER DEV NAME(LOC) 5S.2A; GLUCOSE,POINT OF CARE 85 MG/DL (70-110)
[2019-08-19] MEDS: HYDROCODONE/ACETAMINOPHEN 5-325 MG TABLET PO PRN (22:04)
[2019-08-19 23:51] VITALS: BP 166/77
[2019-08-20] MEDS: HydrALAZINE HCL 20 MG/ML VIAL IVP PRN ×2 (01:02→17:17)
[2019-08-20] MEDS: MetroNIDAZOLE 500 MG/NACL 100 ML IV SCH ×3 (01:02→17:02)
[2019-08-20] MEDS: METOCLOPRAMIDE HCL 5 MG/ML 2 ML VIAL IVP PRN ×2 (04:26→08:57)
[2019-08-20 07:14] VITALS: BP 165/91
[2019-08-20] MEDS: HEPARIN SODIUM,PORCINE 5,000 UNITS/ML VIAL SQ SCH ×3 (08:00→22:58)
[2019-08-20] MEDS: INSULIN GLARGINE,HUM.REC.ANLOG 100 UNITS/ML SQ SCH ×2 (09:00→21:00)
[2019-08-20] MEDS: MORPHINE SULFATE 2 MG/ML SYRINGE IVP PRN (09:02)
[2019-08-20] MEDS: PANTOPRAZOLE SODIUM 80 MG in SODIUM CHLORIDE 0.9% 100 ML IV SCH ×2 (09:03→19:27)
[2019-08-20] MEDS: HydrALAZINE HCL 50 MG TABLET PO SCH ×3 (09:04→20:43)
[2019-08-20] MEDS: DOCUSATE SODIUM 100 MG CAPSULE PO SCH ×2 (09:04→20:37)
[2019-08-20] MEDS: METOPROLOL TARTRATE 50 MG TABLET PO SCH ×2 (09:04→20:37)
[2019-08-20] MEDS: LISINOPRIL 20 MG TABLET PO SCH ×2 (09:04→20:38)
[2019-08-20] MEDS ORDERED: SODIUM CHLORIDE 0.9% 500 ML IV ONE (09:09)
[2019-08-20 10:44] VITALS: BP 165/81
[2019-08-20] MEDS: ONDANSETRON HCL 4 MG/2 ML VIAL IVP PRN (10:48)
[2019-08-20] MEDS: LABETALOL HCL 5 MG/ML 20 ML VIAL IVP PRN (10:54)
[2019-08-20 15:15] VITALS: BP 184/81
[2019-08-20 15:49] LABS: GLUCOMETER DEV NAME(LOC) 5S.2A; GLUCOSE,POINT OF CARE 89 MG/DL (70-110)
[2019-08-20 15:49] LABS: GLUCOMETER DEV NAME(LOC) 5S.2A; GLUCOSE,POINT OF CARE 113 MG/DL (70-110)
[2019-08-20 17:38] LABS: GLUCOMETER DEV NAME(LOC) 5S.1; GLUCOSE,POINT OF CARE 140 MG/DL (70-110)
[2019-08-20 17:41] LABS: GLUCOMETER DEV NAME(LOC) 5N.1; GLUCOSE,POINT OF CARE 126 MG/DL (70-110)
[2019-08-20 20:19] VITALS: BP 145/98
[2019-08-21 00:08] VITALS: BP 157/99
[2019-08-21] MEDS: MetroNIDAZOLE 500 MG/NACL 100 ML IV SCH ×3 (00:32→17:00)
[2019-08-21] MEDS: PANTOPRAZOLE SODIUM 80 MG in SODIUM CHLORIDE 0.9% 100 ML IV SCH ×3 (04:19→23:47)
[2019-08-21] MEDS: MORPHINE SULFATE 2 MG/ML SYRINGE IVP PRN (04:38)
[2019-08-21 04:48] VITALS: BP 157/105
[2019-08-21 06:33] LABS: GLUCOMETER DEV NAME(LOC) 5N.1; GLUCOSE,POINT OF CARE 163 MG/DL (70-110)
[2019-08-21 06:33] LABS: GLUCOMETER DEV NAME(LOC) 5N.1; GLUCOSE,POINT OF CARE 138 MG/DL (70-110)
[2019-08-21] MEDS: HEPARIN SODIUM,PORCINE 5,000 UNITS/ML VIAL SQ SCH ×3 (08:00→23:01)
[2019-08-21] MEDS: METOPROLOL TARTRATE 50 MG TABLET PO SCH ×2 (08:48→20:12)
[2019-08-21] MEDS: LISINOPRIL 20 MG TABLET PO SCH ×2 (08:48→20:12)
[2019-08-21] MEDS: DOCUSATE SODIUM 100 MG CAPSULE PO SCH ×2 (08:48→20:12)
[2019-08-21] MEDS: EPOETIN ALFA 10,000 UNITS/ML VIAL SQ SCH (08:49)
[2019-08-21] MEDS: HydrALAZINE HCL 50 MG TABLET PO SCH ×3 (08:53→20:12)
[2019-08-21] MEDS: INSULIN GLARGINE,HUM.REC.ANLOG 100 UNITS/ML SQ SCH ×2 (08:54→20:13)
[2019-08-21] MEDS ORDERED: CloNIDine 0.1 MG/24 HOUR PATCH TD ONE (11:00)
[2019-08-21 12:30] VITALS: BP 154/109
[2019-08-21 15:56] VITALS: BP 205/118
[2019-08-21] MEDS: HydrALAZINE HCL 20 MG/ML VIAL IVP PRN (16:18)
[2019-08-21 19:28] VITALS: BP 212/86
[2019-08-21 23:32] LABS: GLUCOMETER DEV NAME(LOC) 5N.1; GLUCOSE,POINT OF CARE 122 MG/DL (70-110)
[2019-08-21 23:32] LABS: GLUCOMETER DEV NAME(LOC) 5N.1; GLUCOSE,POINT OF CARE 101 MG/DL (70-110)
[2019-08-22] VITALS (8 sets, daily range): BP systolic 160–198; BP diastolic 60–122
[2019-08-22] MEDS: HydrALAZINE HCL 20 MG/ML VIAL IVP PRN ×2 (00:44→12:55)
[2019-08-22] MEDS: MetroNIDAZOLE 500 MG/NACL 100 ML IV SCH ×3 (01:14→16:27)
[2019-08-22 02:01] LABS: GLUCOMETER DEV NAME(LOC) 5S.1; GLUCOSE,POINT OF CARE 151 MG/DL (70-110)
[2019-08-22] MEDS: MORPHINE SULFATE 2 MG/ML SYRINGE IVP PRN (04:23)
[2019-08-22] MEDS: LABETALOL HCL 5 MG/ML 20 ML VIAL IVP PRN ×2 (04:26→16:46)
[2019-08-22] MEDS: METOCLOPRAMIDE HCL 5 MG/ML 2 ML VIAL IVP PRN (06:32)
[2019-08-22 07:44] LABS: CALCIUM, TOTAL 8.9 mg/dL (8.8-10.5); CREATININE 3.91 mg/dL (0.60-1.30); POTASSIUM 4.7 mmol/L (3.5-5.1)
[2019-08-22] MEDS: INSULIN GLARGINE,HUM.REC.ANLOG 100 UNITS/ML SQ SCH ×2 (09:00→20:01)
[2019-08-22 09:38] LABS: GLUCOMETER DEV NAME(LOC) 5N.1; GLUCOSE,POINT OF CARE 128 MG/DL (70-110)
[2019-08-22] MEDS: METOPROLOL TARTRATE 50 MG TABLET PO SCH ×2 (10:48→20:00)
[2019-08-22] MEDS: DOCUSATE SODIUM 100 MG CAPSULE PO SCH ×2 (10:48→20:00)
[2019-08-22] MEDS: HydrALAZINE HCL 50 MG TABLET PO SCH ×3 (10:48→20:00)
[2019-08-22] MEDS: LISINOPRIL 20 MG TABLET PO SCH ×2 (10:48→20:00)
[2019-08-22] MEDS: HEPARIN SODIUM,PORCINE 5,000 UNITS/ML VIAL SQ SCH ×3 (10:49→23:22)
[2019-08-22] MEDS: PANTOPRAZOLE SODIUM 80 MG in SODIUM CHLORIDE 0.9% 100 ML IV SCH ×2 (10:50→20:00)
[2019-08-22 17:01] LABS: GLUCOMETER DEV NAME(LOC) 5N.2; GLUCOSE,POINT OF CARE 138 MG/DL (70-110)
[2019-08-22 22:05] LABS: GLUCOMETER DEV NAME(LOC) 5N.2; GLUCOSE,POINT OF CARE 158 MG/DL (70-110)
[2019-08-23 00:07] VITALS: BP 158/95
[2019-08-23 00:29] LABS: GLUCOMETER DEV NAME(LOC) 5S.2A; GLUCOSE,POINT OF CARE 175 MG/DL (70-110)
[2019-08-23] MEDS: MetroNIDAZOLE 500 MG/NACL 100 ML IV SCH ×2 (00:39→08:48)
[2019-08-23 04:50] VITALS: BP 195/96
[2019-08-23] MEDS: HydrALAZINE HCL 20 MG/ML VIAL IVP PRN ×2 (05:20→12:52)
[2019-08-23] MEDS: PANTOPRAZOLE SODIUM 80 MG in SODIUM CHLORIDE 0.9% 100 ML IV SCH (06:07)
[2019-08-23 07:58] VITALS: BP 143/69
[2019-08-23] MEDS: HEPARIN SODIUM,PORCINE 5,000 UNITS/ML VIAL SQ SCH (08:00)
[2019-08-23 08:06] LABS: GLUCOMETER DEV NAME(LOC) 5S.2A; GLUCOSE,POINT OF CARE 132 MG/DL (70-110)
[2019-08-23] MEDS: METOPROLOL TARTRATE 50 MG TABLET PO SCH (08:48)
[2019-08-23] MEDS: LISINOPRIL 20 MG TABLET PO SCH (08:48)
[2019-08-23] MEDS: HydrALAZINE HCL 50 MG TABLET PO SCH (08:48)
[2019-08-23] MEDS: DOCUSATE SODIUM 100 MG CAPSULE PO SCH (08:48)
[2019-08-23] MEDS ORDERED: VITAMIN B COMP/VIT C/FOLIC ACID CAPSULE PO SCH (09:00)
[2019-08-23] MEDS: INSULIN GLARGINE,HUM.REC.ANLOG 100 UNITS/ML SQ SCH (09:00)
[2019-08-23] MEDS ORDERED: B CO1CAP6 PO (10:42)
[2019-08-23] MEDS ORDERED: METO50 PO (10:42)
[2019-08-23] MEDS ORDERED: INSLAN SQ (10:42)
[2019-08-23] MEDS ORDERED: LISI-618 PO (10:42)
[2019-08-23] MEDS ORDERED: METO-296 PO (10:42)
[2019-08-23] MEDS ORDERED: HYDR-2924 PO (10:42)
[2019-08-23] MEDS ORDERED: OMEP20 PO (10:42)
[2019-08-23 12:30] VITALS: BP 187/94
[2019-08-23 13:00] LABS: GLUCOMETER DEV NAME(LOC) 5S.1; GLUCOSE,POINT OF CARE 204 MG/DL (70-110)
== END 2019-08-23 15:25 | disposition home or self-care (01) | DRG 199 ==
LOC: EMS 17:34 → 5S 23:58
PROVIDERS: ADMIT Internal Medicine; ATTEND Internal Medicine
PROC: 5A1D70Z Performance of Urinary Filtration, Intermittent, Less than 6 Hours Per Day (ICD-10-PCS; 2019-08-15)
PROC: 0DB68ZX Excision of Stomach, Via Natural or Artificial Opening Endoscopic, Diagnostic (ICD-10-PCS; 2019-08-16)
PROC: 0DB58ZX Excision of Esophagus, Via Natural or Artificial Opening Endoscopic, Diagnostic (ICD-10-PCS; principal; 2019-08-16 13:00)
PROC: 5A1D70Z Performance of Urinary Filtration, Intermittent, Less than 6 Hours Per Day (ICD-10-PCS; 2019-08-17)
PROC: 5A1D70Z Performance of Urinary Filtration, Intermittent, Less than 6 Hours Per Day (ICD-10-PCS; 2019-08-19)
DX: I16.0 Hypertensive urgency (principal); D61.818 Other pancytopenia; E44.0 Moderate protein-calorie malnutrition; N18.6 End stage renal disease; E11.22 Type 2 diabetes mellitus with diabetic chronic kidney disease; E11.51 Type 2 diabetes mellitus with diabetic peripheral angiopathy without gangrene; I12.0 Hypertensive chronic kidney disease with stage 5 chronic kidney disease or end stage renal disease; K29.70 Gastritis, unspecified, without bleeding; A08.4 Viral intestinal infection, unspecified; E78.5 Hyperlipidemia, unspecified; D63.1 Anemia in chronic kidney disease; I73.9 Peripheral vascular disease, unspecified; I80.9 Phlebitis and thrombophlebitis of unspecified site; K80.20 Calculus of gallbladder without cholecystitis without obstruction; Z99.2 Dependence on renal dialysis; Z68.29 Body mass index [BMI] 29.0-29.9, adult
CPT/HCPCS: 70450; 74176; 76700; 87081; 87340; 88305; 88312; 88313; 93005; C9113; J0360; J0885; J1644; J1815; J2270; J2405; J2704; J2765; J3490; J7030; J7040; J7050; J7060